=== PATIENT | female | born 1985 | race Caucasian/White ===

== ENCOUNTER 2023-04-06 14:30 | Outpatient (CLI) | payer BC, SELFPAY | END 2023-04-06 14:31 | disposition home or self-care (01) | PROVIDERS: PCP Family Medicine; Visit Provider Advanced Practice Midwife | DX: Z01.419 Encounter for gynecological examination (general) (routine) without abnormal findings (principal); Z13.6 Encounter for screening for cardiovascular disorders; Z13.29 Encounter for screening for other suspected endocrine disorder | CPT/HCPCS: 80061; 84443 ==

== ENCOUNTER 2024-02-17 16:48 | Outpatient (CLI) | payer BC, SELFPAY ==
--- NOTE | 2024-02-17 17:00 | CRLHL7_ITS ---
For Patients: As a result of the Century Cures Act, medical imaging exams and procedure reports are released immediately into your electronic medical record. You may view this report before your referring provider. If you have questions, please contact your health care provider. INDICATION: Dysmenorrhea COMPARISON: none TECHNIQUE: 2D melton scale and color Doppler images were acquired of the pelvis using a transabdominal and transvaginal approach. FINDINGS: Sonographic images demonstrate a normal size and smooth outer contour of the uterus. Uterus measures 7.2 cm in length by 3.6 cm in AP diameter by 5.1 cm in transverse dimension. The myometrium has a heterogeneous echotexture with a few scattered calcifications. The endometrial lining appears normal and measures 6 mm in composite thickness. The right ovary measures 2.6 x 1.9 x 1.8 cm in size and the left ovary measures 2.8 x 1.8 x 2.0 cm. The ovaries demonstrate normal arterial and venous blood flow on color Doppler analysis. There are no suspicious fluid collections within the cul-de-sac. IMPRESSION: Endometrial thickness 6 millimeters. No endometrial fluid. Dictated by Sebastian Thao MD @ 02/18/2024 10:39:40 AM (Electronically Signed)
== END 2024-02-17 16:49 | disposition home or self-care (01) ==
PROVIDERS: PCP Family Medicine; Visit Provider Obstetrics & Gynecology
DX: N94.6 Dysmenorrhea, unspecified (principal); R93.89 Abnormal findings on diagnostic imaging of other specified body structures; N94.89 Other specified conditions associated with female genital organs and menstrual cycle
CPT/HCPCS: 76830; 76856; 93976

== ENCOUNTER 2024-03-18 09:56 | Outpatient (CLI) | payer BC, SELFPAY ==
--- NOTE | 2024-03-18 10:50 | W.ANESCHARGE ---
Anesthesia Charges Start Date/Time Anesthesia Start Date: 03/18/24 Anesthesia Start Time: 11:01 Stop Date/Time Anesthesia Stop Date: 03/18/24 Anesthesia Stop Time: 11:23
--- NOTE | 2024-03-18 11:25 | W.ANESCHARGE ---
Anesthesia Charges Start Date/Time Anesthesia Start Date: 03/18/24 Anesthesia Start Time: 11:01 Stop Date/Time Anesthesia Stop Date: 03/18/24 Anesthesia Stop Time: 11:23
== END 2024-03-18 09:57 | disposition home or self-care (01) ==
LOC: OP CLINIC 09:56
PROVIDERS: PCP Family Medicine; Visit Provider Internal Medicine
DX: Z12.11 Encounter for screening for malignant neoplasm of colon (principal)
CPT/HCPCS: 00811; 00812; 45378; J2704

== ENCOUNTER 2024-04-20 08:32 | Day surgery (SDC) | payer BC, SELFPAY ==
[2024-04-20] VITALS (23 sets, daily range): BP systolic 94–135; BP diastolic 43–108; PULSE 53–96; RESP 12–16; TEMP 35.9–37; O2SAT 93–100; BMI 24.2
[2024-04-20 09:16] LABS: Ur HCG Qualitative* Negative (Negative)
[2024-04-20] MEDS: LACTATED RINGERS 1000 ML 1,000 ML 100 ML IV (09:41)
[2024-04-20] MEDS: SODIUM CHLORIDE 0.9 % (FLUSH) 10 ML SYRINGE IVF (09:41)
[2024-04-20 09:48] LABS: Hemoglobin* 13.6 gm/dL (12.0-16.0)
--- NOTE | 2024-04-20 09:57 | W.PM.H&PU ---
History & Physical Update History & Physical Update H&P Reviewed and patient assessed: No changes noted
[2024-04-20] MEDS: SCOPOLAMINE 1 MG/3 DAY PATCH 1 PATCH TRANSDERMA (10:00)
[2024-04-20 10:09] LABS: Creatinine* 0.7 mg/dL (0.5-1.5); Est. Creatinine Clearance* 89.26; Estimated Glomerular Filt Rate 113 ml/min
--- NOTE | 2024-04-20 10:31 | W.ANESCHARGE ---
Anesthesia Charges Start Date/Time Anesthesia Start Date: 04/20/24 Anesthesia Start Time: 10:32 Stop Date/Time Anesthesia Stop Date: 04/20/24 Anesthesia Stop Time: 13:57
--- NOTE | 2024-04-20 10:32 | P.NB_ITS ---
Nerve Block Nerve Block Time Seen by Provider: 10:39 Date Seen: 04/20/24 Type of block requested by surgeon for post-operative analgesia: TAP Side: bilateral Time out performed: Yes Verification of patient name: Yes Verification of date of : Yes Site marking: site marked Name of person performing procedure: Andry Continuous monitoring Was continuous monitoring of O2 sat, B/P, clinical research monitor, recorded every 15 minutes?: Yes Procedure Checklist: sterile prep, needles and gloves Ultrasound guided. Images saved: Yes Medications given in 5ml increments after negative aspiration: Marcaine %: 0.25 mL: 30 Needle gauge: 20 and Exparel mL: 10 Patient tolerated procedure well: Yes Additional comments: Needle noted between internal oblique and transversus abdominus. Local spread visualized Block Charges Block Charge (with Pro Fee): TAP Bilateral Use of Ultrasound Machine for Block: Yes- US Guidance/pain block
[2024-04-20] MEDS: CLINDAMYCIN 900 MG/50 ML-D5W 900 MG/50 ML PIGGYBACK 100 MG IVPB (10:41)
[2024-04-20] MEDS: BUPIVACAINE 0.25% 30 ML INJECTION (11:45)
--- NOTE | 2024-04-20 14:05 | W.ANESCHARGE ---
Anesthesia Charges Start Date/Time Anesthesia Start Date: 04/20/24 Anesthesia Start Time: 10:32 Stop Date/Time Anesthesia Stop Date: 04/20/24 Anesthesia Stop Time: 13:57
[2024-04-20] MEDS: MEPERIDINE 25 MG/ML INJ 12.5 MG IVP (14:07)
--- NOTE | 2024-04-20 14:07 | W.PM.GYNPROC ---
Procedure Note Date of procedure: 04/20/24 Will [facility] bill your pro fee for this procedure?: Yes Pre-op diagnosis: Cervical dysplasia, chronic pelvic pain Post-op diagnosis: Cervical dysplasia, chronic pelvic pain Procedure: Total laparoscopic hysterectomy, left oophorectomy, cystoscopy, lysis of adhesions, posterior cul de sac biopsies, sigmoid epiploica nodularity removal Anesthesia: GETA Complications: None Surgeon: Darron Guadarrama MD Scheduling Manager: Danielle Ramos Estimated blood loss (mL): 50 IV fluids (mL): 1,000 Urine Output (mL): 300 Pathology: specimen obtained, sent to pathology Condition: stable Disposition: floor Findings: Findings: Normal external genitalia, speculum exam: cervix with evidence of previous excision procedure, looks like granulation tissue almost at her endocervical canal. Uterine sound: 8cm. Intra abdominal: Grossly normal intestines, liver, stomach. Thin adhesions of the sigmoid colon to the left round ligament and left pelvic side wall, grossly normal left ovary. Bladder reflection adhesion to the lower anterior uterine segment. Grossly normal right ovary. Evidence of previous salpingectomies. Peritoneal window as in endometriosis in the posterior cul de sac. On this area there are also 2 lesions, one that looks like a clear vesicle of about 2-3mm, the other is a bit larger of about 5mm and seems to be more of a nodule, that is filled with a dark fluid as well as fatty tissue. Area of sigmoid epiploica with a round lesion of about 1-1.5cm seems to be a nodularity. Cystoscopy: Bladder mucosa erythematous, but intact no evidence of suture material. Gas bubbles noted, bilateral ureteral jets noted. Procedure Description: DESCRIPTION OF PROCEDURE: After obtaining informed consent, the patient was taken to the operating room where general anesthesia was obtained without difficulty. She was prepared and draped in the normal sterile fashion in the low dorsal lithotomy position. A Crowe catheter was inserted into the bladder and left to gravity drainage. A medium Graves open-sided speculum was introduced into the vagina. The cervix was visualized and grasped along its anterior lip with a single-tooth tenaculum. The uterus was gently sounded. Sound length was found to be 8 cm. No need for cervical dilation. I then placed a Medium VCare uterine manipulator. The tenaculum and speculum were removed. The green VCare cup was digitally pressed up against the cervix and then cinched in place with the blue accessory cup. I then changed gloves and my attention was turned to the abdomen. The inferior aspect of the umbilical fold was injected with 0.5% Bupivacaine plain. A 5 mm vertical incision was then made within the umbilical fold using a scalpel. A direct entry technique was used and a 5 mm laparoscopic port with CO2 gas set at 5mmHg was introduced under direct visualization. The trocar was removed leaving the sleeve in place. The CO2 gas flow was turned to high flow to achieve pneumoperitoneum. The 5 mm laparoscope was used then to carefully inspect the abdomen and pelvis with findings noted above. Pictures were taken for documentation purposes. The patient was placed in Trendelenburg positioning. Two additional ports were placed in the right and left lower quadrants under direct visualization after first anesthetizing the skin and fascia with 0.5% Bupivacaine plain. On the left side a 11mm port was utilized and on the right side a 5mm port placed. An additional 5mm port was placed on the abdomen at the level of the umbilicus to the left of umbilicus, about 3-4 cm lateral from umbilicus under direct visualization. Once the ports were in place, the VCare manipulator was used to elevate the uterus. The ureters were identified bilaterally along their courses in the pelvic sidewalls. The VCare cup was visualized and palpated with a blunt grasper. Left sigmoid epiploica adhesions to the left round ligament were taken down utilizing a laparoscopic scissors. This allowed mobilization of the sigmoid colon and visualization of the left infundibulopelvic ligament. The left infundibulopelvic ligament was then clamped, coagulated and cut with Thunderbeat device. Excellent hemostasis was obtained. The left round ligament was then sealed in a wide swath and transected with the Thunderbeat, excellent hemostasis was obtained. The broad ligament was then opened using the Thunderbeat anteriorly and posteriorly along the cervix from the left within the confines of the VCare cup. Pressure was maintained on the uterine manipulator the whole time. The left uterine vessels were sealed in a wide swath and transected with the Thunderbeat, then the tissues over the VCare cup edge on the left side were thinned using the Thunderbeat to the midline posteriorly and anteriorly so that the fascial layer could be identified. The right round ligament was then sealed in a wide swath and transected with the Thunderbeat, excellent hemostasis was obtained. The broad ligament was then opened using the Thunderbeat anteriorly and posteriorly along the cervix from the right within the confines of the VCare cup. Pressure was maintained on the uterine manipulator the whole time. The right uterine vessels were sealed in a wide swath and transected with the Thunderbeat, then the tissues over the VCare cup edge on the right side were thinned using the Thunderbeat to the midline posteriorly and anteriorly so that the fascial layer could be identified. Once an adequate dissection was made circumferentially, laparoscopic monopolar spatula was utilized to dissect and identify the green Vcare cup, tissue dissected circumferentially around the cervix within the groove of the VCare cup. Once the dissection was completed circumferentially, from the vagina the uterine manipulator with uterus and attached left ovary were removed. A glove with glasses was placed vaginally to aid in maintaining pneumoperitoneum. The vaginal cuff was reapproximated in a running fashion with a V-Loc suture starting from the right side and running across to the left and then back to the midline where the suture was cut flush with the tissues. The pelvis was copiously irrigated and hemostasis visualized. Preparations were then made for cystoscopy. Fluorescein was administered intravenously along with the IV fluids. The Crowe catheter was removed. The patient was flattened out. Cystoscopy was performed using sterile normal saline as distending medium. The bladder was carefully inspected and noted to be free of filling defects or suture material. Both ureteral orifices were easily visualized and fluorescein tinged urine jets were noted from both sides. The cystoscope was then removed. The Crowe catheter was replaced into the bladder. Bimanual vaginal exam completed and found and vaginal cuff completely closed. Attention was once again turned to the abdomen. The abdomen and pelvis were again irrigated and inspected for hemostasis. Posterior cul-de-sac lesions were grasped with [place] forceps and utilizing laparoscopic scissors lesions removed. We had asked for intraoperative consult with general surgery so that they could evaluate lesions and address need for any additional interventions after removal. Dr. Lazo from general surgery was able to come into the room and gave her opinion. No additional suturing of peritoneum needed as there was no concern for rectal serosal injury. We also placed a rectal manipulator to further identify rectum and dissection area. Also, the nodular lesion described on the sigmoid epiploica was grasped with atraumatic grasper, clamped, coagulated and excised utilizing Thuderbeat device. Hemostasis secured. Erich placed over resections sites for further assurance of hemostasis of any small bleeding vessels. Attention was then placed to the 11mm port site and under direct visualization using a Jame-Radha system the fascia was closed. All instruments were then removed under direct visualization. Pneumoperitoneum was allowed to escape. The skin at all port sites was closed in a subcuticular fashion with 4-0 Monocryl. LiquiBand was then placed over the incisions. The patient tolerated the procedure well. Sponge, lap, needle, and instrument counts were reported as correct x2. The patient was taken to the recovery room awake and in stable condition. She did receive Clindamycin and Gentamicin preoperatively. PATHOLOGY SPECIMEN(S): Uterus, left ovary, posterior cul de sac biopsy 1, posterior cul de sac biopsy 2, sigmoid epiploica nodularity
[2024-04-20] MEDS: LACTATED RINGERS 1000 ML 1,000 ML 35 ML IV (14:09)
[2024-04-20] MEDS: HYDROmorphone 0.5 mg/0.5 ml inj IVP (14:16)
[2024-04-20] MEDS: fentaNYL 100 MCG/2 ML inj 50 MCG IVP ×2 (14:21→14:31)
--- NOTE | 2024-04-20 15:12 | PC.NURSE ---
Pt arrived from surgery at 1447. Pt drowsy. Pt's partner at bedside. Darian chand applied at 1450. Pt's dressings are dry and intact. Crowe catheter patent.
[2024-04-20] MEDS: PROMETHAZINE 25 MG/ML INJ 12.5 MG IV (17:53)
[2024-04-20] MEDS: KETOROLAC 30 MG/ML inj IVP (20:32)
--- NOTE | 2024-04-20 23:24 | PC.NURSE ---
End of Shift: Patient pleasant and cooperative, A&O. VSS, afebrile. Patient reports pain on her abdomen this shift rating a max of 7 out of 10. Managed with scheduled medication, see MAR. Ice pack applied to incision site. Crowe catheter patent and draining.
[2024-04-20] MEDS: OXYCODONE 5 MG TABLET PO (23:56)
[2024-04-21] MEDS: KETOROLAC 30 MG/ML inj IVP (01:49)
[2024-04-21 02:51] VITALS: BP 110/70; PULSE 57; RESP 16; TEMP 37.1; O2SAT 99
[2024-04-21] MEDS: IBUPROFEN 600 MG TABLET PO ×2 (06:01→12:31)
--- NOTE | 2024-04-21 06:20 | PC.NURSE ---
End of shift [id number]: A&O pleasant and cooperative. VSS. Reporting 5/10 pain at surgical site. See eMAR for interventions. Lap sites dry and intact. Crowe in place and draining. Dangled and stood at the side of bed overnight and tolerated well. Denied dizziness/lightheadedness or n/v. Saline locked. Using call light appropriately.
[2024-04-21 06:41] LABS: Hemoglobin* 12.6 gm/dL (12.0-16.0)
[2024-04-21 07:00] VITALS: BP 110/70; PULSE 63; RESP 16; TEMP 36.7; O2SAT 100
[2024-04-21 07:13] LABS: Creatinine* 0.7 mg/dL (0.5-1.5); Est. Creatinine Clearance* 89.26; Estimated Glomerular Filt Rate 113 ml/min
[2024-04-21] MEDS: OXYCODONE 5 MG TABLET PO (08:19)
[2024-04-21] MEDS: ACETAMINOPHEN 325 MG TABLET 1000 MG PO (08:19)
--- NOTE | 2024-04-21 08:54 | P.DS_ITS ---
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 Indication for surgery: Cervical dysplasia, chronic pelvic pain. Intraoperative findings were notable for: Normal external genitalia, speculum exam: cervix with evidence of previous excision procedure, looks like granulation tissue almost at her endocervical canal. Uterine sound: 8cm. Intra abdominal: Grossly normal intestines, liver, stomach. Thin adhesions of the sigmoid colon to the left round ligament and left pelvic side wall, grossly normal left ovary. Bladder reflection adhesion to the lower anterior uterine segment. Grossly normal right ovary. Evidence of previous salpingectomies. Peritoneal window as in endometriosis in the posterior cul de sac. On this area there are also 2 lesions, one that looks like a clear vesicle of about 2-3mm, the other is a bit larger of about 5mm and seems to be more of a nodule, that is filled with a dark fluid as well as fatty tissue. Area of sigmoid epiploica with a round lesion of about 1-1.5cm seems to be a nodularity. Cystoscopy: Bladder mucosa erythematous, but intact no evidence of suture material. Gas bubbles noted, bilateral ureteral jets noted. She had an uncomplicated surgery. Postoperative course has been uneventful. Vitals have been stable. She has remained afebrile. Today, on postoperative day 1, she reports the pain is well controlled. She has been able to ambulate Without difficulty. She is tolerating regular diet. She is passing flatus. Crowe catheter has been removed, and she is voiding without difficulty. Time Spent with Patient Time attestation: Total time spent providing and/or coordinating discharge services: [employer]OR OF [employer]CHANDISING - Exam Physical Exam: Vital signs: Temp Pulse Resp BP Pulse Ox O2 Del Method 98.7 F 57 L 16 110/70 99 Room Air 04/21/24 02:51 04/21/24 02:51 04/21/24 02:51 04/21/24 02:51 04/21/24 02:51 04/21/24 02:51 Narrative: VITAL SIGNS: As noted above. GENERAL APPEARANCE: Alert, cooperative female in no acute distress. MOOD & AFFECT: Normal. HEART: Regular rate and rhythm without murmurs. LUNGS: Lungs are clear to auscultation bilaterally. No crackles, wheezes, or rhonchi. ABDOMEN: Positive bowel sounds, mildly distended, slightly tender to deep palpation of lower abdominal quadrants, no guarding, no rebound. Incisions healing well, no abnormal discharge or induration. : Spotting. EXTREMITIES: Nonedematous. Well perfused. Nontender. NEURO: Intact. [employer]CH[employer]ISING - DS: Data Data Completed and Pending Labs on day of discharge: Labs from last 24 hours 04/21/24 04/20/24 04/20/24 06:12 Unknown 09:35 Hgb 12.6 13.6 Creatinine 0.7 0.7 Estimated Creat Clear 89.26 89.26 Estimated GFR 113 113 Urine HCG, Qual Negative Blood Type O Negative Antibody Screen POSITIVE Antibody Identification Pending Procedures Procedures: Procedures Operation Date: 04/20/24 10:20 Actual Procedure Side Surgeon p M/S-Total Laparoscopic Hysterectomy, Left Oophorectomy, Cystoscopy, POSTAL PERITONEAL CUL DE SAC BIOPSY, EXCISION OF SIGMOID EPIPLOIC NODULARITY Left Ruby Guadarrama MD Discharge Plan Discharge Disposition: Home w/ Parent or Adult Discharging Surgeon: Ruby Guadarrama Follow-Up Appointment: Dr. Norris, [facility], May 04 @ 12:45 pm Prescriptions: New acetaminophen 325 mg Tablet 1,000 mg PO Q4H PRN (Reason: minor pain) Qty: 30 0RF docusate sodium 100 mg Capsule 100 mg PO BID Qty: 30 0RF ibuprofen 600 mg Tablet 600 mg PO Q6H Qty: 30 0RF oxycodone 5 mg Tablet 5 mg PO Q4H PRN (Reason: Moderate Pain) Qty: 20 0RF No Action ondansetron 4 mg tablet,disintegrating 4 mg PO Q8H PRN (Reason: nausea and vomiting) Qty: 10 0RF Activity Level: Activity as Tolerated Activity Detail: No lifting more than 15 pounds and nothing vaginally for 6 weeks Discharge Diet: Regular Patient Instructions: Acetaminophen (By mouth), Ibuprofen (By mouth), Laxative, Stool Softeners (By mouth), Oxycodone, Rapid Release (By mouth), Laparoscopic Hysterectomy (DC) Follow-up: Ruby Guadarrama MD [Staff Physician] - 05/04/24 12:45 pm Glenn Baxter MD [Primary Care Provider] - Discharge Orders: Discharge Order (Routine); Ordered 04/21/24 Ordered By: Ruby Guadarrama
--- NOTE | 2024-04-21 13:50 | PC.NURSE ---
Discharge: patient voiding well after wong removal, tolerating a reg diet. Patient denied N/V/SOB. PRN OXY administered x1 and patient tolerated well. Patient's IV removed intact. Dishcharge instructions given and patient signed belongings sheet and discharge instructions. Patient verbalized understanding of instructions.
== END 2024-04-21 13:45 | disposition home or self-care (01) ==
LOC: OR 08:33 → MEDSURG 08:35
PROVIDERS: PCP Family Medicine; Visit Provider Obstetrics & Gynecology
PROC: 0UT94ZZ Resection of Uterus, Percutaneous Endoscopic Approach (ICD-10-PCS; CPT 58571; principal; 2024-04-20 10:15)
DX: N87.1 Moderate cervical dysplasia (principal); R10.2 Pelvic and perineal pain; G89.29 Other chronic pain; N92.1 Excessive and frequent menstruation with irregular cycle; N83.202 Unspecified ovarian cyst, left side; N80.329 Endometriosis of the posterior cul-de-sac, unspecified depth; N94.2 Vaginismus; K63.89 Other specified diseases of intestine; G89.18 Other acute postprocedural pain
CPT/HCPCS: 58571; 49321; 45399; 00840; 36415; 64488; 76942; 81025; 82565; 85018; 86850; 86870; 86880; 86900; 86901; 88305; 88309; A9270; C9290; J0330; J0665; J0736; J1100; J1170; J1580; J1885; J2175; J2250; J2405; J2550; J2704; J3010; J3490; J7120

== ENCOUNTER 2024-05-04 13:06 | Outpatient (CLI) | payer BC, SELFPAY | END 2024-05-04 13:07 | disposition home or self-care (01) | LOC: NFLDREF 13:06 | PROVIDERS: PCP Family Medicine; Visit Provider Obstetrics & Gynecology | DX: R30.0 Dysuria (principal) | CPT/HCPCS: 87086 ==

== ENCOUNTER 2024-06-10 14:03 | Outpatient (CLI) | payer BC, SELFPAY | END 2024-06-10 14:04 | disposition home or self-care (01) | PROVIDERS: PCP Family Medicine; Visit Provider Obstetrics & Gynecology | DX: R68.82 Decreased libido (principal); F41.9 Anxiety disorder, unspecified | CPT/HCPCS: 82670; 83001; 84403; 84443 ==

== ENCOUNTER 2025-09-11 11:30 | Outpatient (CLI) | payer BC, SELFPAY ==
[2025-09-13 22:33] LABS: HPV Source Vaginal
[2025-09-18 10:25] LABS: Pap Test Digital Imaging Done
== END 2025-09-11 11:31 | disposition home or self-care (01) ==
PROVIDERS: Visit Provider Obstetrics & Gynecology
DX: R53.83 Other fatigue (principal); Z12.4 Encounter for screening for malignant neoplasm of cervix; Z86.39 Personal history of other endocrine, nutritional and metabolic disease
CPT/HCPCS: 80053; 84443; 87624; 87625; 88141; 88142; 88175

== ENCOUNTER 2025-09-11 11:45 | Outpatient (CLI) | payer BC, SELFPAY ==
--- NOTE | 2025-09-11 11:30 | CRLHL7_ITS ---
For Patients: As a result of the Cures Act, medical imaging exams and procedure reports are released immediately into your electronic medical record. You may view this report before your referring provider. If you have questions, please contact your health care provider. INDICATION: BILATERAL SCREENING MAMMOGRAM, ASYMPTOMATIC 40 Y/O FEMALE COMPARISON: None. Baseline. TECHNIQUE: Digital mammogram in CC and MLO projections including computer-aided detection (CAD) and tomosynthesis. BREAST COMPOSITION: The breasts are heterogeneously dense, which may obscure small masses. FINDINGS: No suspicious findings. ASSESSMENT: BI-RADS 1 Negative RECOMMENDATION: Annual screening mammogram. A lay language report of this examination will be provided to the patient. Dictated by: Yumiko Lynch MD @ 09/12/2025 11:38:06 (Electronically Signed)
== END 2025-09-11 11:46 | disposition home or self-care (01) ==
LOC: MAMMO 11:45
PROVIDERS: Visit Provider Obstetrics & Gynecology
DX: Z12.31 Encounter for screening mammogram for malignant neoplasm of breast (principal); R92.333 Mammographic heterogeneous density, bilateral breasts; R53.83 Other fatigue; Z12.4 Encounter for screening for malignant neoplasm of cervix; Z86.39 Personal history of other endocrine, nutritional and metabolic disease
CPT/HCPCS: 77063; 77067; 80053; 84443; 87624; 88175